=== PATIENT | female | born 1970 | race Caucasian/White ===

== ENCOUNTER 2021-12-14 14:02 | Inpatient (IN) | payer OTHER ==
[2021-12-14] MEDS ORDERED: MAGNESIUM CITRATE 300 ML BOTTLE PO PRN (15:16)
[2021-12-14] MEDS ORDERED: ACETAMINOPHEN 325 MG TABLET (FP) PO PRN (15:16)
[2021-12-14] MEDS ORDERED: MAGNESIUM HYDROX 2400MG/30ML ORAL SUSPENSION 30 ML CUP PO PRN (15:16)
[2021-12-14] MEDS ORDERED: DICYCLOMINE HCL 10 MG CAPSULE PO PRN (15:16)
[2021-12-14] MEDS ORDERED: IBUPROFEN 400 MG TABLET (FP) PO PRN (15:16)
[2021-12-14] MEDS ORDERED: MAG HYDROX/AL HYDROX/SIMETH 30 ML UNIT-DOSE CUP PO PRN (15:16)
[2021-12-14] MEDS ORDERED: NALOXONE HCL (KLOXXADO) 8 MG SPRAY NS PRN (15:16)
[2021-12-14] MEDS ORDERED: NICOTINE POLACRILEX 4 MG GUM BUC PRN (15:16)
[2021-12-14] MEDS ORDERED: BISMUTH SUBSALICYLATE 262 MG/15 ML BTL PO PRN (15:16)
[2021-12-14] MEDS ORDERED: IBUPROFEN 600 MG TABLET (FP) PO PRN (15:16)
[2021-12-14] MEDS ORDERED: BENZOCAINE/MENTHOL (CHLORASEPTIC ) LOZENGE MM PRN (15:16)
[2021-12-14] MEDS ORDERED: LOPERAMIDE HCL 2 MG CAPSULE PO PRN (15:16)
[2021-12-14 16:42] VITALS: BMI 31.8
[2021-12-14] MEDS: hydrOXYzine PAMOATE 25 MG CAPSULE (FP) PO SCH ×2 (18:00→21:51)
[2021-12-14] MEDS: chlordiazePOXIDE HCL 25 MG CAPSULE PO SCH ×2 (18:01→22:20)
[2021-12-14] MEDS: METHOCARBAMOL 500 MG TABLET PO PRN (18:05)
[2021-12-14] MEDS: PRENATAL VITAMINS W/ FOLIC ACID TABLET (FP) PO SCH (18:05)
[2021-12-14] MEDS: NICOTINE 10 MG CARTRIDGE (INHALER) IH PRN (18:07)
[2021-12-14] MEDS: THIAMINE HCL 100 MG TABLET (FP) PO SCH (21:51)
[2021-12-14] MEDS: ACETAMINOPHEN 325 MG TABLET (FP) PO PRN (21:52)
[2021-12-14] MEDS ORDERED: MELATONIN 5 MG TABLETS PO SCH (22:00)
[2021-12-15] MEDS: ACETAMINOPHEN 325 MG TABLET (FP) PO PRN ×3 (03:41→19:46)
[2021-12-15] MEDS: METHOCARBAMOL 500 MG TABLET PO PRN ×3 (03:41→18:10)
[2021-12-15] MEDS: hydrOXYzine PAMOATE 25 MG CAPSULE (FP) PO SCH ×5 (04:15→22:23)
[2021-12-15] MEDS: chlordiazePOXIDE HCL 25 MG CAPSULE PO SCH ×4 (04:15→22:23)
[2021-12-15] MEDS: ONDANSETRON *ODT* 4 MG TABLET SL PRN (06:19)
[2021-12-15] MEDS: chlordiazePOXIDE HCL 25 MG CAPSULE PO PRN (08:34)
[2021-12-15] MEDS ORDERED: amLODIPine BESYLATE 5 MG TABLET (FP) PO SCH (10:00)
[2021-12-15] MEDS ORDERED: propRANOLol HCL 10 MG TABLET PO SCH ×2 (10:00→22:00)
[2021-12-15] MEDS: PRENATAL VITAMINS W/ FOLIC ACID TABLET (FP) PO SCH (10:41)
[2021-12-15 11:56] LABS: HEMATOCRIT 41.4 % (32.4-45.2); MCH 32.1 pg (25.7-33.7); MCHC 33.8 g/dl (32.0-36.0); MEAN PLT VOLUME 7.6 fl (7.5-11.1); PLATELET COUNT 315 10^3/uL (134-434); RBC 4.36 M/mm3 (3.60-5.2); RDW 14.9 % (11.6-15.6)
[2021-12-15] MEDS: lamoTRIgine 100 MG TABLET PO SCH (12:08)
[2021-12-15] MEDS: PARoxetine HCL 20 MG TABLET PO SCH (12:41)
[2021-12-15 12:56] LABS: CALCIUM 9.9 mg/dL (8.5-10.1)
[2021-12-15 12:57] LABS: ALBUMIN 3.6 g/dl (3.4-5.0); BLOOD UREA NITROGEN 13.2 mg/dL (7-18)
[2021-12-15 13:00] LABS: CREATININE 0.9 mg/dL (0.55-1.3)
[2021-12-15 13:01] LABS: BILIRUBIN,TOTAL 0.8 mg/dL (0.2-1); TOT PROT 7.7 g/dl (6.4-8.2)
[2021-12-15] MEDS ORDERED: TRIMETHOBENZAMIDE HCL 200MG/2ML INJ IM PRN (15:29)
[2021-12-15] MEDS: SUVOREXANT 10 MG TABLET PO PRN (22:23)
[2021-12-15] MEDS: THIAMINE HCL 100 MG TABLET (FP) PO SCH (22:23)
[2021-12-15] MEDS: propRANOLol HCL 10 MG TABLET PO SCH (22:23)
[2021-12-16] MEDS: chlordiazePOXIDE HCL 25 MG CAPSULE PO PRN ×2 (00:57→13:33)
[2021-12-16] MEDS: METHOCARBAMOL 500 MG TABLET PO PRN ×5 (00:57→23:57)
[2021-12-16] MEDS: chlordiazePOXIDE HCL 25 MG CAPSULE PO SCH ×4 (06:18→23:58)
[2021-12-16] MEDS: hydrOXYzine PAMOATE 25 MG CAPSULE (FP) PO SCH ×5 (06:18→23:57)
[2021-12-16] MEDS ORDERED: amLODIPine BESYLATE 5 MG TABLET (FP) PO SCH (10:00)
[2021-12-16] MEDS: propRANOLol HCL 10 MG TABLET PO SCH (10:34)
[2021-12-16] MEDS: PARoxetine HCL 20 MG TABLET PO SCH (10:34)
[2021-12-16] MEDS: PRENATAL VITAMINS W/ FOLIC ACID TABLET (FP) PO SCH (10:35)
[2021-12-16] MEDS: lamoTRIgine 100 MG TABLET PO SCH (10:35)
[2021-12-16] MEDS: amLODIPine BESYLATE 5 MG TABLET (FP) PO SCH (10:35)
[2021-12-16] MEDS: THIAMINE HCL 100 MG TABLET (FP) PO SCH (23:57)
[2021-12-16] MEDS: SUVOREXANT 10 MG TABLET PO PRN (23:59)
[2021-12-17] MEDS ORDERED: chlordiazePOXIDE HCL 10 MG CAPSULE PO PRN
[2021-12-17] MEDS: hydrOXYzine PAMOATE 25 MG CAPSULE (FP) PO SCH ×5 (01:00→22:17)
[2021-12-17] MEDS: chlordiazePOXIDE HCL 10 MG CAPSULE PO SCH ×4 (05:34→22:18)
[2021-12-17] MEDS: METHOCARBAMOL 500 MG TABLET PO PRN ×2 (07:35→17:49)
[2021-12-17] MEDS: propRANOLol HCL 10 MG TABLET PO SCH ×3 (11:16→22:16)
[2021-12-17] MEDS: PARoxetine HCL 20 MG TABLET PO SCH (11:17)
[2021-12-17] MEDS: PRENATAL VITAMINS W/ FOLIC ACID TABLET (FP) PO SCH (11:19)
[2021-12-17] MEDS: lamoTRIgine 100 MG TABLET PO SCH (11:20)
[2021-12-17] MEDS: amLODIPine BESYLATE 5 MG TABLET (FP) PO SCH (11:24)
[2021-12-17] MEDS: ONDANSETRON *ODT* 4 MG TABLET SL PRN (17:49)
[2021-12-17] MEDS: NICOTINE 10 MG CARTRIDGE (INHALER) IH PRN (19:10)
[2021-12-17] MEDS: THIAMINE HCL 100 MG TABLET (FP) PO SCH (22:16)
[2021-12-17] MEDS: SUVOREXANT 10 MG TABLET PO PRN (22:21)
[2021-12-18] MEDS ORDERED: diazePAM CARPU-JECT 10 MG/2 ML DISP.SYRIN IM ONE (00:51)
[2021-12-18] MEDS ORDERED: LORazepam 2 MG/ML SDV VIAL IM ONE (01:21)
[2021-12-18] MEDS: chlordiazePOXIDE HCL 10 MG CAPSULE PO SCH ×2 (05:29→18:38)
[2021-12-18] MEDS: hydrOXYzine PAMOATE 25 MG CAPSULE (FP) PO SCH ×5 (05:30→22:40)
[2021-12-18] MEDS: propRANOLol HCL 10 MG TABLET PO SCH ×2 (10:46→22:40)
[2021-12-18] MEDS: PRENATAL VITAMINS W/ FOLIC ACID TABLET (FP) PO SCH (10:46)
[2021-12-18] MEDS: lamoTRIgine 100 MG TABLET PO SCH (10:46)
[2021-12-18] MEDS: amLODIPine BESYLATE 5 MG TABLET (FP) PO SCH (10:46)
[2021-12-18] MEDS: PARoxetine HCL 20 MG TABLET PO SCH (10:46)
[2021-12-18] MEDS: SUVOREXANT 10 MG TABLET PO PRN (22:39)
[2021-12-18] MEDS: THIAMINE HCL 100 MG TABLET (FP) PO SCH (22:40)
[2021-12-19] MEDS ORDERED: chlordiazePOXIDE HCL 10 MG CAPSULE PO ONE (05:00)
[2021-12-19] MEDS: hydrOXYzine PAMOATE 25 MG CAPSULE (FP) PO SCH (05:22)
[2021-12-19 09:34] VITALS: BP 113/75; PULSE 62; TEMP 97.7
== END 2021-12-19 08:39 | disposition home or self-care (01) | DRG 775 ==
LOC: YASAS 14:02 → Y6N 16:11
PROVIDERS: ADMIT Allergy & Immunology; ATTEND Surgery
PROC: HZ2ZZZZ Detoxification Services for Substance Abuse Treatment (ICD-10-PCS; principal; 2021-12-14)
DX: F10.230 Alcohol dependence with withdrawal, uncomplicated (principal); F12.20 Cannabis dependence, uncomplicated; F17.210 Nicotine dependence, cigarettes, uncomplicated; F19.282 Other psychoactive substance dependence with psychoactive substance-induced sleep disorder; F41.1 Generalized anxiety disorder; F41.0 Panic disorder [episodic paroxysmal anxiety]; I10 Essential (primary) hypertension; K21.9 Gastro-esophageal reflux disease without esophagitis
CPT/HCPCS: 36415; 80053; 81025; 82962; 85027; 86780; 93005; 93010; C9803-CS; Q0162; U0003; U0005

== ENCOUNTER 2022-07-15 14:29 | Inpatient (IN) | payer OTHER ==
[2022-07-15 15:00] VITALS: BMI 29.2
[2022-07-15] MEDS ORDERED: IBUPROFEN 600 MG TABLET (FP) PO PRN (16:13)
[2022-07-15] MEDS ORDERED: NICOTINE 10 MG CARTRIDGE (INHALER) IH PRN (16:13)
[2022-07-15] MEDS ORDERED: ONDANSETRON *ODT* 4 MG TABLET SL PRN (16:13)
[2022-07-15] MEDS ORDERED: BENZOCAINE/MENTHOL (CHLORASEPTIC ) LOZENGE MM PRN (16:13)
[2022-07-15] MEDS ORDERED: ACETAMINOPHEN 325 MG TABLET (FP) PO PRN (16:13)
[2022-07-15] MEDS ORDERED: IBUPROFEN 400 MG TABLET (FP) PO PRN (16:13)
[2022-07-15] MEDS ORDERED: NALOXONE HCL (KLOXXADO) 8 MG SPRAY NS PRN (16:13)
[2022-07-15] MEDS ORDERED: POLYETHYLENE GLYCOL (HEALTHYLAX) 3350 17 GM PACKET PO PRN (16:13)
[2022-07-15] MEDS ORDERED: DICYCLOMINE HCL 10 MG CAPSULE PO PRN (16:13)
[2022-07-15] MEDS ORDERED: MAGNESIUM HYDROX 2400MG/30ML ORAL SUSPENSION 30 ML CUP PO PRN (16:13)
[2022-07-15] MEDS ORDERED: BISMUTH SUBSALICYLATE 524 MG/30 ML PO PRN (16:13)
[2022-07-15] MEDS ORDERED: LOPERAMIDE HCL 2 MG CAPSULE PO PRN (16:13)
[2022-07-15] MEDS: chlordiazePOXIDE HCL 25 MG CAPSULE PO SCH ×2 (17:28→23:04)
[2022-07-15] MEDS: hydrOXYzine PAMOATE 25 MG CAPSULE (FP) PO PRN ×2 (19:49→22:30)
[2022-07-15] MEDS: METHOCARBAMOL 500 MG TABLET PO PRN (19:50)
[2022-07-15] MEDS ORDERED: LIDOCAINE PATCH REMOVAL MC SCH (22:00)
[2022-07-15] MEDS: THIAMINE HCL 100 MG TABLET (FP) PO SCH (22:30)
[2022-07-15] MEDS: MELATONIN 5 MG TABLETS PO SCH (22:30)
[2022-07-15] MEDS: MAG HYDROX/AL HYDROX/SIMETH 30 ML UNIT-DOSE CUP PO PRN (22:33)
[2022-07-15] MEDS: LIDOCAINE PATCH REMOVAL MC SCH (23:06)
[2022-07-16] MEDS: chlordiazePOXIDE HCL 25 MG CAPSULE PO SCH ×4 (05:32→22:59)
[2022-07-16] MEDS: PRENATAL VITAMINS W/ FOLIC ACID TABLET (FP) PO SCH (10:28)
[2022-07-16] MEDS: METHOCARBAMOL 500 MG TABLET PO PRN ×2 (10:28→17:49)
[2022-07-16] MEDS: LIDOCAINE 5% TOPICAL PATCH TP SCH (10:29)
[2022-07-16] MEDS: THIAMINE HCL 100 MG TABLET (FP) PO SCH (10:59)
[2022-07-16 11:17] LABS: HEMATOCRIT 41.6 % (32.4-45.2); HEMOGLOBIN 14.1 GM/dL (10.7-15.3); MCHC 33.9 g/dl (32.0-36.0); MEAN CELL VOLUME 91.5 fl (80-96); MEAN PLT VOLUME 8.8 fl (7.5-11.1); PLATELET COUNT 230 10^3/uL (134-434); RBC 4.55 M/mm3 (3.60-5.2); RDW 15.9 % (11.6-15.6); WHITE BLOOD COUNT 7.9 K/mm3 (4.0-10.0)
[2022-07-16 11:24] LABS: CHLORIDE 93 mmol/L (98-107); SODIUM 133 mmol/L (136-145)
[2022-07-16 11:34] LABS: CALCIUM 9.7 mg/dL (8.5-10.1)
[2022-07-16 11:35] LABS: ALBUMIN 3.7 g/dl (3.4-5.0); CO2 30 mmol/L (21-32); GLUCOSE,RANDOM 111 mg/dL (74-106)
[2022-07-16 11:38] LABS: CREATININE 1.5 mg/dL (0.55-1.3); SGOT/AST 31 U/L (15-37); SGPT/ALT 19 U/L (13-61)
[2022-07-16 11:40] LABS: BILIRUBIN,TOTAL 0.6 mg/dL (0.2-1); TOT PROT 8.1 g/dl (6.4-8.2)
[2022-07-16 11:41] LABS: ALK PHOS 137 U/L (45-117); ANION GAP 10 MMOL/L (8-16)
[2022-07-16] MEDS ORDERED: POTASSIUM CHLORIDE ORAL LIQUID 20 MEQ/15 ML PO ONE ×2 (13:00→17:00)
[2022-07-16] MEDS: chlordiazePOXIDE HCL 25 MG CAPSULE PO PRN (19:52)
[2022-07-16] MEDS: MELATONIN 5 MG TABLETS PO SCH (22:59)
[2022-07-16] MEDS: LIDOCAINE PATCH REMOVAL MC SCH (23:09)
[2022-07-17] MEDS: MAG HYDROX/AL HYDROX/SIMETH 30 ML UNIT-DOSE CUP PO PRN ×2 (02:29→11:27)
[2022-07-17] MEDS: METHOCARBAMOL 500 MG TABLET PO PRN ×3 (03:08→18:32)
[2022-07-17] MEDS: chlordiazePOXIDE HCL 25 MG CAPSULE PO PRN ×3 (03:09→19:06)
[2022-07-17] MEDS: chlordiazePOXIDE HCL 25 MG CAPSULE PO SCH ×4 (06:03→22:08)
[2022-07-17] MEDS: ACETAMINOPHEN 325 MG TABLET (FP) PO PRN (08:47)
[2022-07-17] MEDS: LIDOCAINE 5% TOPICAL PATCH TP SCH (10:42)
[2022-07-17] MEDS: PRENATAL VITAMINS W/ FOLIC ACID TABLET (FP) PO SCH (10:42)
[2022-07-17 13:13] LABS: CHLORIDE 92 mmol/L (98-107); SODIUM 133 mmol/L (136-145)
[2022-07-17 13:23] LABS: ALBUMIN 3.8 g/dl (3.4-5.0); BLOOD UREA NITROGEN 25.3 mg/dL (7-18); CO2 27 mmol/L (21-32); GLUCOSE,RANDOM 112 mg/dL (74-106)
[2022-07-17 13:24] LABS: CALCIUM 9.6 mg/dL (8.5-10.1)
[2022-07-17 13:26] LABS: CREATININE 1.4 mg/dL (0.55-1.3)
[2022-07-17 13:29] LABS: PHOSPHOROUS 4.2 mg/dL (2.5-4.9)
[2022-07-17] MEDS ORDERED: POTASSIUM CHLORIDE ORAL LIQUID 20 MEQ/15 ML PO ONE ×3 (14:00→22:00)
[2022-07-17] MEDS: hydrOXYzine PAMOATE 25 MG CAPSULE (FP) PO PRN (16:46)
[2022-07-17] MEDS: hydrOXYzine PAMOATE 25 MG CAPSULE (FP) PO ONE ×2 (21:03→22:09)
[2022-07-17] MEDS: THIAMINE HCL 100 MG TABLET (FP) PO SCH (22:08)
[2022-07-17] MEDS: MELATONIN 5 MG TABLETS PO SCH (22:08)
[2022-07-17] MEDS: LIDOCAINE PATCH REMOVAL MC SCH (22:12)
[2022-07-18] MEDS ORDERED: chlordiazePOXIDE HCL 10 MG CAPSULE PO PRN
[2022-07-18] MEDS: chlordiazePOXIDE HCL 10 MG CAPSULE PO SCH ×4 (05:46→22:12)
[2022-07-18] MEDS: METHOCARBAMOL 500 MG TABLET PO PRN ×3 (05:47→19:44)
[2022-07-18] MEDS: ACETAMINOPHEN 325 MG TABLET (FP) PO PRN ×2 (06:27→14:01)
[2022-07-18] MEDS ORDERED: PARoxetine HCL 20 MG TABLET PO SCH (10:00)
[2022-07-18] MEDS: LIDOCAINE 5% TOPICAL PATCH TP SCH (10:20)
[2022-07-18] MEDS: PRENATAL VITAMINS W/ FOLIC ACID TABLET (FP) PO SCH (10:20)
[2022-07-18] MEDS ORDERED: SODIUM POLYSTYRENE SULFONATE 15 GM/60 ML BOTTLE PO ONE (12:31)
[2022-07-18] MEDS: hydrOXYzine PAMOATE 25 MG CAPSULE (FP) PO PRN ×2 (17:05→22:11)
[2022-07-18 21:35] VITALS: TEMP 98
[2022-07-18] MEDS ORDERED: SUVOREXANT 10 MG TABLET PO PRN (22:00)
[2022-07-18] MEDS: THIAMINE HCL 100 MG TABLET (FP) PO SCH (22:11)
[2022-07-18] MEDS: LIDOCAINE PATCH REMOVAL MC SCH (22:14)
[2022-07-19] MEDS ORDERED: chlordiazePOXIDE HCL 10 MG CAPSULE PO PRN
[2022-07-19] MEDS ORDERED: ASPIRIN 81 MG CHEWABLE TABLETS PO ONE (01:02)
[2022-07-19 01:08] VITALS: BP 143/92; PULSE 87; RESP 18
[2022-07-19] MEDS ORDERED: chlordiazePOXIDE HCL 10 MG CAPSULE PO SCH ×2 (05:00→08:18)
[2022-07-19] MEDS ORDERED: THIAMINE HCL 100 MG TABLET (FP) PO SCH (10:00)
[2022-07-19] MEDS ORDERED: FOLIC ACID 1 MG TABLET (FP) PO SCH (10:00)
[2022-07-20] MEDS ORDERED: chlordiazePOXIDE HCL 10 MG CAPSULE PO ONE ×2 (05:00→06:00)
== END 2022-07-19 07:17 | disposition short-term general hospital (02) | DRG 775 ==
LOC: YASAS 14:29 → Y6N 16:58
PROVIDERS: ADMIT Allergy & Immunology; ATTEND Surgery
PROC: HZ2ZZZZ Detoxification Services for Substance Abuse Treatment (ICD-10-PCS; principal; 2022-07-15)
DX: F10.230 Alcohol dependence with withdrawal, uncomplicated (principal); F13.230 Sedative, hypnotic or anxiolytic dependence with withdrawal, uncomplicated; F17.210 Nicotine dependence, cigarettes, uncomplicated; F19.282 Other psychoactive substance dependence with psychoactive substance-induced sleep disorder; F19.280 Other psychoactive substance dependence with psychoactive substance-induced anxiety disorder; F41.1 Generalized anxiety disorder; I10 Essential (primary) hypertension; K21.9 Gastro-esophageal reflux disease without esophagitis; J45.909 Unspecified asthma, uncomplicated; E87.5 Hyperkalemia; R07.9 Chest pain, unspecified; R79.89 Other specified abnormal findings of blood chemistry; Z62.810 Personal history of physical and sexual abuse in childhood; Y04.8XXA Assault by other bodily force, initial encounter; Y92.239 Unspecified place in hospital as the place of occurrence of the external cause; Z98.84 Bariatric surgery status; Z87.81 Personal history of (healed) traumatic fracture
CPT/HCPCS: 36415; 80053; 80069; 81025; 83036; 84132; 85027; 86780; 87811; 93005; 93010; C9803-CS; Q0162; U0003; U0005

== ENCOUNTER 2022-07-19 01:49 | Observation (INO) | payer OTHER ==
[~2022-07-19 01:49] MED LIST: chlordiazePOXIDE HCL 10 MG CAPSULE PO PRN
[2022-07-19] MEDS ORDERED: ACETAMINOPHEN 1000 MG/100 ML BAG IVPB ONE (04:13)
[2022-07-19] MEDS ORDERED: ACETAMINOPHEN INJECTION 100 ML IVPB ONE (04:30)
[2022-07-19 04:40] LABS: BASO % 0.7 % (0-2.0); EOS % 1.6 % (0-4.5); HEMATOCRIT 37.8 % (32.4-45.2); HEMOGLOBIN 12.4 GM/dL (10.7-15.3); LYMPH % 33.3 % (8-40); MCH 30.4 pg (25.7-33.7); MCHC 32.8 g/dl (32.0-36.0); MEAN CELL VOLUME 92.6 fl (80-96); MEAN PLT VOLUME 8.8 fl (7.5-11.1); MONO % 13.8 % (3.8-10.2); NEUT % 50.6 % (42.8-82.8); PLATELET COUNT 230 10^3/uL (134-434); RBC 4.08 M/mm3 (3.60-5.2); RDW 18.7 % (11.6-15.6); WHITE BLOOD COUNT 7.9 K/mm3 (4.0-10.0)
[2022-07-19] MEDS ORDERED: chlordiazePOXIDE HCL 10 MG CAPSULE PO ONE (04:46)
[2022-07-19 05:01] LABS: ALBUMIN 3.2 g/dl (3.4-5.0); BLOOD UREA NITROGEN 15.9 mg/dL (7-18)
[2022-07-19 05:02] LABS: INR 0.9 (0.83-1.09); PROTHROMBIN TIME (PATIENT) 10.3 SEC (9.7-13.0)
[2022-07-19 05:04] LABS: CREATININE 1.1 mg/dL (0.55-1.3)
[2022-07-19 05:05] LABS: ACTIVATED PTT 31.7 SECONDS (25.2-36.5)
[2022-07-19 05:06] LABS: BILIRUBIN,TOTAL 0.3 mg/dL (0.2-1); TOT PROT 6.7 g/dl (6.4-8.2)
[2022-07-19 05:09] LABS: N-TERMINAL BNP 875.4 pg/ml (5-125)
[2022-07-19] MEDS ORDERED: chlordiazePOXIDE HCL 10 MG CAPSULE ONE ×4 (05:20→20:10)
[2022-07-19] MEDS ORDERED: ASPIRIN 81 MG CHEWABLE TABLETS PO ONE (05:44)
[2022-07-19] MEDS ORDERED: ASPIRIN 81 MG CHEWABLE TABLETS ONE (05:47)
[2022-07-19] MEDS ORDERED: ENOXAPARIN NA (PORCINE) 40 MG/0.4 ML DISP.SYRIN SQ ONE (09:13)
[2022-07-19] MEDS ORDERED: THIAMINE HCL 100 MG TABLET (FP) ONE ×2 (09:42→21:49)
[2022-07-19] MEDS ORDERED: FOLIC ACID 1 MG TABLET (FP) ONE (09:42)
[2022-07-19] MEDS ORDERED: PANTOPRAZOLE 40 MG TABLET PO ONE (09:42)
[2022-07-19] MEDS ORDERED: chlordiazePOXIDE HCL 10 MG CAPSULE PO SCH ×2 (10:00→20:00)
[2022-07-19] MEDS ORDERED: PARoxetine HCL 30 MG TABLET PO SCH (10:00)
[2022-07-19] MEDS: FOLIC ACID 1 MG TABLET (FP) PO SCH (10:07)
[2022-07-19] MEDS: ENOXAPARIN NA (PORCINE) 40 MG/0.4 ML DISP.SYRIN SQ SCH (10:07)
[2022-07-19] MEDS: PARoxetine HCL 20 MG TABLET PO SCH (10:08)
[2022-07-19] MEDS: PANTOPRAZOLE 40 MG TABLET PO SCH (10:08)
[2022-07-19] MEDS: THIAMINE HCL 100 MG TABLET (FP) PO SCH ×2 (10:08→21:50)
[2022-07-19 12:06] LABS: CALCIUM 9.4 mg/dL (8.5-10.1)
[2022-07-19 12:07] LABS: BLOOD UREA NITROGEN 18.7 mg/dL (7-18)
[2022-07-19 12:10] LABS: CREATININE 1.4 mg/dL (0.55-1.3)
[2022-07-19] MEDS ORDERED: SODIUM CHLORIDE 1,000 ML IV SCH (12:15)
[2022-07-19] MEDS ORDERED: LIDOCAINE 5% TOPICAL PATCH ONE (15:59)
[2022-07-19] MEDS ORDERED: ACETAMINOPHEN 500 MG TABLET (FP) ONE (16:00)
[2022-07-19] MEDS: ACETAMINOPHEN 500 MG TABLET (FP) PO PRN ×2 (16:05→22:48)
[2022-07-19] MEDS: chlordiazePOXIDE HCL 10 MG CAPSULE PO PRN ×2 (16:06→22:47)
[2022-07-19] MEDS: LIDOCAINE 5% TOPICAL PATCH TP SCH (16:06)
[2022-07-19] MEDS ORDERED: propRANOLol HCL 10 MG TABLET ONE ×2 (18:13→21:49)
[2022-07-19] MEDS: propRANOLol HCL 10 MG TABLET PO SCH ×2 (18:17→21:49)
[2022-07-19] MEDS ORDERED: traMADol HCL 50 MG TABLET PO ONE (18:17)
[2022-07-19] MEDS ORDERED: traMADol HCL 50 MG TABLET ONE (18:22)
[2022-07-19 19:21] LABS: BLOOD UREA NITROGEN 18.6 mg/dL (7-18)
[2022-07-19 19:24] LABS: CREATININE 1.4 mg/dL (0.55-1.3)
[2022-07-19] MEDS ORDERED: chlordiazePOXIDE HCL 10 MG CAPSULE PO PRN (20:00)
[2022-07-19] MEDS: LIDOCAINE PATCH REMOVAL MC SCH (21:48)
[2022-07-19 23:28] VITALS: RESP 18; BMI 30.8
[2022-07-20] MEDS ORDERED: chlordiazePOXIDE HCL 10 MG CAPSULE PO ONE (05:00)
[2022-07-20] MEDS: propRANOLol HCL 10 MG TABLET PO SCH ×3 (05:59→21:30)
[2022-07-20 09:50] LABS: HEMATOCRIT 35.2 % (32.4-45.2); HEMOGLOBIN 11.7 GM/dL (10.7-15.3); MCHC 33.2 g/dl (32.0-36.0); MEAN CELL VOLUME 93.4 fl (80-96); MEAN PLT VOLUME 8.8 fl (7.5-11.1); PLATELET COUNT 214 10^3/uL (134-434); RBC 3.77 M/mm3 (3.60-5.2); RDW 18.2 % (11.6-15.6); WHITE BLOOD COUNT 7.7 K/mm3 (4.0-10.0)
[2022-07-20 10:05] LABS: CALCIUM 9.1 mg/dL (8.5-10.1)
[2022-07-20 10:06] LABS: ALBUMIN 3.2 g/dl (3.4-5.0); BLOOD UREA NITROGEN 19.8 mg/dL (7-18); MAGNESIUM 2.4 mg/dL (1.8-2.4)
[2022-07-20 10:09] LABS: CREATININE 1.1 mg/dL (0.55-1.3); PHOSPHOROUS 4.9 mg/dL (2.5-4.9)
[2022-07-20 10:10] LABS: BILIRUBIN,TOTAL 0.2 mg/dL (0.2-1); TOT PROT 6.5 g/dl (6.4-8.2)
[2022-07-20] MEDS: PANTOPRAZOLE 40 MG TABLET PO SCH (10:15)
[2022-07-20] MEDS: THIAMINE HCL 100 MG TABLET (FP) PO SCH ×2 (10:16→21:03)
[2022-07-20] MEDS: PARoxetine HCL 20 MG TABLET PO SCH (10:16)
[2022-07-20] MEDS: FOLIC ACID 1 MG TABLET (FP) PO SCH (10:16)
[2022-07-20] MEDS: ENOXAPARIN NA (PORCINE) 40 MG/0.4 ML DISP.SYRIN SQ SCH (10:16)
[2022-07-20] MEDS: LIDOCAINE 5% TOPICAL PATCH TP SCH (10:16)
[2022-07-20] MEDS: chlordiazePOXIDE HCL 10 MG CAPSULE PO PRN ×2 (12:02→21:04)
[2022-07-20] MEDS: ACETAMINOPHEN 500 MG TABLET (FP) PO PRN ×2 (12:02→21:03)
[2022-07-20] MEDS: LIDOCAINE PATCH REMOVAL MC SCH (21:30)
[2022-07-21] MEDS ORDERED: hydrOXYzine PAMOATE 25 MG CAPSULE (FP) PO PRN (01:29)
[2022-07-21] MEDS: ACETAMINOPHEN 500 MG TABLET (FP) PO PRN (03:12)
[2022-07-21] MEDS: propRANOLol HCL 10 MG TABLET PO SCH (05:07)
[2022-07-21 09:03] LABS: BASO % 0.8 % (0-2.0); EOS % 2.5 % (0-4.5); HEMATOCRIT 36.9 % (32.4-45.2); HEMOGLOBIN 12.1 GM/dL (10.7-15.3); LYMPH % 30.9 % (8-40); MCH 30.7 pg (25.7-33.7); MCHC 32.7 g/dl (32.0-36.0); MEAN CELL VOLUME 93.8 fl (80-96); MONO % 11.7 % (3.8-10.2); NEUT % 54.1 % (42.8-82.8); PLATELET COUNT 245 10^3/uL (134-434); RBC 3.94 M/mm3 (3.60-5.2); RDW 17.7 % (11.6-15.6); WHITE BLOOD COUNT 7.7 K/mm3 (4.0-10.0)
[2022-07-21 09:28] LABS: BLOOD UREA NITROGEN 23.3 mg/dL (7-18); CALCIUM 9.1 mg/dL (8.5-10.1)
[2022-07-21 09:29] LABS: ALBUMIN 3.2 g/dl (3.4-5.0); CREATININE 1.1 mg/dL (0.55-1.3); MAGNESIUM 2.8 mg/dL (1.8-2.4)
[2022-07-21 09:30] LABS: BILIRUBIN,TOTAL 0.2 mg/dL (0.2-1); TOT PROT 6.6 g/dl (6.4-8.2)
[2022-07-21] MEDS: FOLIC ACID 1 MG TABLET (FP) PO SCH (10:44)
[2022-07-21] MEDS: PARoxetine HCL 20 MG TABLET PO SCH (10:44)
[2022-07-21] MEDS: THIAMINE HCL 100 MG TABLET (FP) PO SCH (10:44)
[2022-07-21] MEDS: PANTOPRAZOLE 40 MG TABLET PO SCH (10:44)
[2022-07-21] MEDS: LIDOCAINE 5% TOPICAL PATCH TP SCH (10:45)
[2022-07-21] MEDS: ENOXAPARIN NA (PORCINE) 40 MG/0.4 ML DISP.SYRIN SQ SCH (10:45)
[2022-07-21 14:12] VITALS: BP 123/80; PULSE 72; TEMP 98.3
== END 2022-07-21 15:53 | disposition home or self-care (01) ==
LOC: JER 01:49 → JERBED 05:46 → J4S 22:26
PROVIDERS: ADMIT Internal Medicine; ATTEND Nurse Practitioner Family
PROC: 3E033NZ Introduction of Analgesics, Hypnotics, Sedatives into Peripheral Vein, Percutaneous Approach (ICD-10-PCS; principal; 2022-07-19)
PROC: 3E0337Z Introduction of Electrolytic and Water Balance Substance into Peripheral Vein, Percutaneous Approach (ICD-10-PCS; 2022-07-19)
DX: R07.9 Chest pain, unspecified (principal); F19.10 Other psychoactive substance abuse, uncomplicated; R41.9 Unspecified symptoms and signs involving cognitive functions and awareness; R00.2 Palpitations; R45.1 Restlessness and agitation; F41.8 Other specified anxiety disorders; F41.0 Panic disorder [episodic paroxysmal anxiety]; Z98.84 Bariatric surgery status; E66.01 Morbid (severe) obesity due to excess calories; Z68.30 Body mass index [BMI] 30.0-30.9, adult; F17.210 Nicotine dependence, cigarettes, uncomplicated; R01.1 Cardiac murmur, unspecified
CPT/HCPCS: 0241U-QW; 36415; 71046-TC-FY; 80048; 80053; 80061; 83036; 83690; 83735; 83880; 84100; 84443; 84484; 85025; 85027; 85379; 85610; 85730; 93005; 93010; 93306-TC; 99285-25; G0378